=== PATIENT | male | born 1945 | race Caucasian/White ===

== ENCOUNTER → 2017-10-09 | Outpatient (CLI) | payer OTHER, MEDICARE | LOC: FIMAGING 10:59 | PROVIDERS: ATTEND Orthopaedic Surgery | DX: Z01.818 Encounter for other preprocedural examination (principal); M17.11 Unilateral primary osteoarthritis, right knee ==

== ENCOUNTER 2017-10-11 07:21 | Observation (INO) | payer OTHER, MEDICARE ==
--- NOTE | 2017-10-11 07:08 | PDHPUP ---
History & Physical Update H&P update statement: This history and physical update is based on an assessment of the patient which was completed after admission or registration (within 24 hours), but prior to the surgery/procedure. H&P update: H&P reviewed & patient examined, no change in patient's condition since H&P completed
[~2017-10-11 07:21] MED LIST: ROPIVACAINE 0.2% 80 MG, EPINEPHrine 0.2 MG, KETOROLAC TROMETHAMINE 30 MG in SYRINGE 0 ML IU ONE; TRANEXAMIC ACID 3,000 MG in NS (SYRINGE) 50 ML IRR ONE; TRANEXAMIC ACID 3,000 MG/50 ML BAG IRR ONE; VANCOMYCIN 1 GM VIAL ONE
[2017-10-11] MEDS ORDERED: FAMOTIDINE 20 MG TAB PO ONE (07:33)
[2017-10-11] MEDS ORDERED: ACETAMINOPHEN 325 MG TAB PO ONE (07:33)
[2017-10-11] MEDS ORDERED: ceFAZolin 2 GM/SWFI 2 GM/20 ML SYR IVP ONE (07:33)
[2017-10-11] MEDS ORDERED: DEXAMETHASONE 4 MG/ML VIAL IVP ONE (07:33)
[2017-10-11] MEDS ORDERED: LR 1,000 ML IV ONE (07:34)
[2017-10-11] MEDS ORDERED: PROPOFOL/EMULSION 500 MG/50 ML BOTTLE IV ONE (08:21)
[2017-10-11] MEDS ORDERED: BUPIVACAINE/EPI 0.5% 30 ML SDV ONE (08:24)
[2017-10-11] MEDS ORDERED: MIDAZOLAM 2 MG/2 ML VIAL IVP ONE (08:27)
--- NOTE | 2017-10-11 08:29 | PDANEPAE ---
ANE Past Medical History - Cardiovascular History Hx Hypertension: Yes Hx Arrhythmias: No Hx Chest Pain: No Hx Coronary Artery / Peripheral Vascular Disease: No Hx CHF / Valvular Disease: No Hx Palpitations: No Cardiovascular History Comment: Inverted T waves. - Pulmonary History Hx COPD: No Hx Asthma/Reactive Airway Disease: No Hx Recent Upper Respiratory Infection: No Hx Oxygen in Use at Home: No Hx Sleep Apnea: No Sleep Apnea Screening Result - Last Documented: Positive - Neurologic History Hx Cerebrovascular Accident: No Hx Seizures: No Hx Dementia: No - Endocrine History Hx Diabetes: No - Renal History Hx Renal Disorders: No - Liver History Hx Hepatic Disorders: No - Neurological & Psychiatric Hx Hx Neurological and Psychiatric Disorders: No Neurological / Psychiatric History Comment: Distant HX of depression/anxiety. 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 - Chronic Pain History Chronic Pain: No - Surgical History Prior Surgeries: L foot osteotomy. L hip resurface. L foot bunionectomy. Total of 5 surg on L foot. L5/S1 fusion. Bilateral ing hernia. R rotater cuff surg. L leg surg. Tonsils. ANE Review of Systems Review of Systems: - Exercise capacity METS (RN): 5 METS ANE Patient History - Allergies Allergies/Adverse Reactions: No Known Allergies Allergy (Verified 10/03/17 16:11) - Home Medications Home Medications: Pravastatin Sodium 40 mg PO DAILY 09/06/17 [Last Taken Unknown] Ibuprofen [Motrin (*)] 200 mg PO DAILY PRN 10/03/17 [Last Taken Unknown] Lisinopril [Zestril 5 mg (*)] 5 mg PO DAILY 10/03/17 [Last Taken Unknown] - NPO status NPO Since - Liquids (Date): 10/10/17 NPO Since - Liquids (Time): 21:00 NPO Since - Solids (Date): 10/10/17 NPO Since - Solids (Time): 21:00 - Anes Hx Anes Hx: no prior problems - Smoking Hx Smoking Status: Never smoked - Family Anes Hx Family Hx Anesthesia Complications: none ANE Labs/Vital Signs - Vital Signs Blood Pressure: 170/118 Heart Rate: 56 Respiratory Rate: 16 O2 Sat (%): 99 Height: 177.8 cm Weight: 61.689 kg ANE Physical Exam - Airway Neck exam: FROM Mallampati Score: Class 1 Mouth exam: normal dental/mouth exam - Pulmonary Pulmonary: no respiratory distress, no rales or rhonchi, clear to auscultation - Cardiovascular Cardiovascular: regular rate and rhythym, no murmur, rub, or gallop ANE Anesthesia Plan Anesthesia Plan: spinal Regional Anesthesia: adductor canal FNB
[2017-10-11] MEDS ORDERED: DEXAMETHASONE 4 MG/ML VIAL ONE (08:31)
[2017-10-11] MEDS ORDERED: NALOXONE HCL 0.4 MG/ML INJ IVP PRN (09:04)
[2017-10-11] MEDS ORDERED: fentaNYL 100 MCG/2 ML INJ ONE (09:11)
[2017-10-11] MEDS ORDERED: fentaNYL 100 MCG/2 ML INJ IVP PRN (09:17)
[2017-10-11] MEDS ORDERED: PROMETHAZINE HCL 25 MG/ML INJ IVP PRN ×2 (09:17→09:18)
[2017-10-11] MEDS ORDERED: LABETALOL HCL 5 MG/ML 20 ML MDV IVP PRN (09:17)
[2017-10-11] MEDS ORDERED: ONDANSETRON 4 MG/2 ML VIAL IVP PRN ×2 (09:17→09:18)
[2017-10-11] MEDS ORDERED: LR 500 ML IV PRN (09:17)
[2017-10-11] MEDS ORDERED: ENALAPRILAT DIHYDRATE 1.25 MG/ML VIAL IVP PRN (09:17)
[2017-10-11] MEDS ORDERED: POLYETHYLENE GLYCOL 3350 17 GM PKT PO PRN (09:18)
[2017-10-11] MEDS ORDERED: CYCLOBENZAPRINE 10 MG TAB PO PRN (09:18)
[2017-10-11] MEDS ORDERED: ONDANSETRON DISINTEGRATING 4 MG TAB PO PRN (09:18)
[2017-10-11] MEDS ORDERED: oxyCODONE IR 5 MG TAB PO PRN (09:18)
[2017-10-11] MEDS ORDERED: MAGNESIUM HYDROXIDE 30 ML UDCUP PO PRN (09:18)
[2017-10-11] MEDS ORDERED: diphenhydrAMINE 25 MG CAP PO PRN (09:18)
[2017-10-11] MEDS ORDERED: DIPHENOXYLATE/ATROPINE LOMOTIL 1 TAB PO PRN (09:18)
[2017-10-11] MEDS ORDERED: LACTULOSE 20 GM/30 ML UDCUP PO PRN (09:18)
[2017-10-11] MEDS ORDERED: TEMAZEPAM 15 MG CAP PO PRN (09:18)
[2017-10-11] MEDS ORDERED: PROMETHAZINE HCL 25 MG SUPPR PR PRN (09:18)
[2017-10-11] MEDS ORDERED: BISACODYL 10 MG SUPP PR PRN (09:18)
[2017-10-11] MEDS ORDERED: METOCLOPRAMIDE 10 MG/2 ML VIAL IVP PRN (09:18)
[2017-10-11] MEDS ORDERED: LR 1,000 ML IV SCH (09:30)
--- NOTE | 2017-10-11 10:06 | POSTOPPROG ---
Post Op Note Date of Operation: 10/11/17 Surgeon: [facility] Aide: delta castle Anesthesiologist: dr. ritter Anesthesia: Spinal, Other (Specify) (adductor canal block) Pre-op Diagnosis: right knee OA Post-op Diagnosis: same Indication: right knee pain due to OA that failed conservative measures Procedure: R PF partial knee arthroplasty Findings: severe PF knee OA Inf/Abcess present in the surg proc area at time of surgery?: No EBL: 50-100
--- NOTE | 2017-10-11 10:32 | POSTANESTH ---
Post Anesthetic Evaluation Cardiovascular Status: Normal, Stable Respiratory Status: Normal, Stable, Similar to Pre-op Cond. Level of Consciousness/Mental Status: Can Participate in Eval, Alert and Oriented Pain Control: Adequate, Prn Tx Ordered Nausea/Vomiting Control: Adequate, Prn Tx Ordered Complications Possibly Related to Anesthesia: None Noted (Adductor canal nerve block performed in PACU.)
[2017-10-11] MEDS: ACETAMINOPHEN 325 MG TAB PO SCH ×3 (12:05→22:50)
[2017-10-11 13:15] VITALS: RESP 16
[2017-10-11] MEDS: ceFAZolin 2 GM/SWFI 2 GM/20 ML SYR IVP SCH ×2 (13:52→21:42)
[2017-10-11] MEDS ORDERED: ceFAZolin 2 GM/DEXTROSE 100 ML IV SCH (14:00)
[2017-10-11] MEDS: hydrALAZINE 20 MG/ML VIAL IVP PRN ×2 (17:58→18:23)
[2017-10-11] MEDS: SENNOSIDES/DOCUSATE SODIUM TAB PO SCH (19:51)
--- NOTE | 2017-10-11 19:52 | GCON ---
[f rep st] CONSULTATION DATE OF CONSULTATION: 10/11/2017 HISTORY OF PRESENT ILLNESS: Mr. Hernández is a pleasant 72-year-old gentleman who is postoperative day 0 following a partial knee arthroplasty with Dr. Aidan Ramirez. I have been consulted to assist w ith management of his marked postoperative hypertension with systolic blood pressures as high as 130 and diastolic pressures as high as 200. Mr. Hernández carries a diagnosis of high blood pressure and takes lisinopril 5 daily. He says his normal blood pressures run 130. He acknowledges that there is some anxiety at this point in time. This morning when he arrived it wa s 170/118, but then at 10:00 a.m. postoperative it was 125/89. It seems to have settled since then. He has no headache. His pain is well-controlled. As I mentioned, he does have a bit of anxiety. H e is not short of breath. Not having chest pain. REVIEW OF SYSTEMS: Complete 10-point review of systems conducted, negative except as noted in the HP I. PAST MEDICAL HISTORY: Hypertension, osteoarthritis of the knee, hyperlipidemia. ALLERGIES: No known drug allergies. HOME MEDICATIONS: Ibuprofen, lisinopril, pravastatin. SOCIAL HISTORY: No tobacco. Occasional alcohol. He is not a heavy drinker. 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 He has lived in [place] since 1969. FAMILY HISTORY: Parents . PHYSICAL EXAMINATION: VITAL SIGNS: Temp 37.1, blood pressure 180/105, pulse 62, breathing 16 times a minute, 96% on room air. GENERAL: No acute distress. Slightly anxious. HEENT: Sclerae anicteri c. Oropharynx clear. Mucous membranes moist. NECK: Supple without lymphadenopathy or JVD. LUNGS: Clear to auscultation bilaterally. HEART: S1, S2. No murmurs. ABDOMEN: Soft, nontender, nondis tended. LOWER EXTREMITIES: No edema. Calves nontender. SKIN: Without rash. NEUROLOGIC: Exam is nonfocal. DIAGNOSTICS: EKG from May 2015 showed sinus bradycardia 53, with left axis deviation, likely LVH . There are biphasic Ts in V6 and in the inferior leads, or at least 3 and F. I discussed the case Dr. Aidan Ramirez. ASSESSMENT/PLAN: A 72-year-old gentleman who presents with postoperative hypertension. 1. Hypertension. I think this is likely secondary to the cocktail of medicines he got with his surg abhilash, as well as possible anxiety. He is not tachycardic. He is not having chest pain. His pain is reasonably well controlled. His operative report does not list a great deal of blood loss. I think what I would like to do is go ahead and start IM amlodipine now. I would use caution with p.r.n. hyd ralazine as this tends to cause up and down blood pressures. 2. Pain well controlled. Per Ortho. 3. Prophylaxis. He has a partial knee arthroplasty. I think I will defer to Orthopedic Surgery reg arding need for prophylaxis. 4. Hyperlipidemia. Continue statin. DISPOSITION: Inpatient. Thank you for the consultation. Hospital Medicine will follow. /[id number]/MODL
[2017-10-11] MEDS: ASPIRIN 81 MG CHEWABLE TAB PO SCH (19:54)
[2017-10-11] MEDS: FAMOTIDINE 20 MG TAB PO SCH (19:55)
--- NOTE | 2017-10-12 05:49 | GOP ---
[f rep st] OPERATIVE REPORT DATE OF OPERATION: 10/11/2017 SURGEON: Marli Ramirez MD FILTER PRESS SUPERVISOR: Claire Ramirez, GERRY. ANESTHESIA: Spinal. PREOPERATIVE DIAGNOSIS: Right knee osteoarthritis. POSTOPERATIVE DIAGNOSIS: Right knee osteoarthritis. PROCEDURE PERFORMED: Right patellofemoral arthroplasty with computer navigation , robotic assist. FINDINGS: INDICATIONS: Patient is a 72-year-old male with isolated patellofemoral disease. Risks and benefits were explained to the patient regarding operative intervention and informed consent was obtained. DESCRIPTION OF PROCEDURE: Patient was identified in the preoperative holding area. His right lower extremity was marked. He was then brought to the operating room. After adequate anesthesia, he was placed supine on the operating table. He then had the leg prepped and draped in the usual sterile fashion. Time-out was taken confirming patient, laterality, procedure, allergies, antibiotic status. We then proceeded to place 2 tracking pins on the anterolateral cortex of the femur. Made our incision, elevated the extremity. Tourniquet was up for a total of 20 minutes at 250 mmHg. We made our medial parapatellar arthrotomy, taking care not to cut into the medial meniscus. Identified the patella. This was cut freehand, sized to be a size 38, and drilled. We then mapped out the trochlea, and this matched up to the CT scan. Using a robotic controlled bur with computer navigation, burred out the sized footprint for a size 7 trochlear component. We then cemented the components in place. All check points were removed. Pins were removed. Incision was copiously irrigated and closed in layers. The patient was awakened and brought to PACU in good condition with a well- perfused limb. Plan is for the patient to be weightbearing as tolerated. /[id number]/MODL MTDD
[2017-10-12] MEDS: ACETAMINOPHEN 325 MG TAB PO SCH ×2 (06:10→11:48)
[2017-10-12] MEDS ORDERED: PRAVASTATIN SODIUM 40 MG TAB PO SCH (09:00)
[2017-10-12] MEDS ORDERED: LISINOPRIL 5 MG TAB PO SCH (09:00)
--- NOTE | 2017-10-12 09:12 | HOSPPROG ---
Hospitalist Progress Note Assessment/Plan: Patient is a 72 y/o male who is s/p partial knee arthroplasty. Hospitalist were asked to see in regards to hypertension. Today is my first encounter w the patient, chart reviewed. *HTN -Norvasc added to his home regimen (reviewed s/e of this medication) -would encourage patient to get a bp cuff for home use and monitor -could also increase Lisinopril dose/ he will further discuss w his PCP *HLD: statin #POD #1 for partial knee atrioplasty -has no pain during my evaluation, feeling great #plan: dc per orthopedics Subjective: German is feeling great, ready to be dc. Objective: Vital Signs Temp Pulse Resp BP Pulse Ox 36.8 C 63 16 159/108 H 93 10/12/17 07:58 10/12/17 07:58 10/12/17 07:58 10/12/17 07:58 10/12/17 07:58 Laboratory Results 10/12/17 05:05 10/11/17 10/12/17 10/13/17 05:59 05:59 05:59 Intake Total 2100 500 Output Total 830 Balance 1270 500 - Physical Exam Constitutional: no apparent distress, other (thin) Eyes: PERRL Ears, Nose, Mouth, Throat: hearing normal Cardiovascular: regular rate and rhythym Respiratory: no respiratory distress Gastrointestinal: normoactive bowel sounds Skin: warm Neurologic: AAOx3 Psychiatric: interacting appropriately ICD10 Worksheet Patient Problems: Problems Problem Status Onset Arthrodesis present Acute Lumbago due to displacement of intervertebral disc Acute Lumbar stenosis Acute
[2017-10-12] MEDS: ASPIRIN 81 MG CHEWABLE TAB PO SCH (09:25)
[2017-10-12] MEDS: FAMOTIDINE 20 MG TAB PO SCH (09:26)
[2017-10-12] MEDS: SENNOSIDES/DOCUSATE SODIUM TAB PO SCH (09:28)
[2017-10-12 11:18] VITALS: BP 156/80; PULSE 60; TEMP 97.5; O2SAT 97
--- NOTE | 2017-10-12 16:34 | SOAPPROG ---
SOAP Progress Note Assessment/Plan: Assessment: German is doing well POD 1 s/p R med MPL VTE ppx: recommend ASA 81 mg BID for 4 weeks HTN: appreciate hospitalist input, rec patient continue Norvasc 2.5mg daily D/c: d/c to home Plan: 10/12/17 16:31 Subjective: German is doing well, denies SOB, chest pain and N/V. Objective: Vital Signs Temp Pulse Resp BP Pulse Ox 36.4 C 60 16 156/80 H 97 10/12/17 11:17 10/12/17 11:17 10/12/17 11:17 10/12/17 11:17 10/12/17 11:17 Laboratory Results 10/12/17 05:05 10/11/17 10/12/17 10/13/17 05:59 05:59 05:59 Intake Total 2100 500 Output Total 830 Balance 1270 500 RLE: incision dressing is clean and dry, NVI, +pf/df ICD10 Worksheet Patient Problems: Problems Problem Status Onset Arthrodesis present Acute Lumbago due to displacement of intervertebral disc Acute Lumbar stenosis Acute Primary localized osteoarthritis of right knee Acute
--- NOTE | 2017-10-17 11:54 | GDS ---
[f rep st] DISCHARGE SUMMARY ADMISSION DIAGNOSIS: Right knee osteoarthritis. DISCHARGE DIAGNOSIS: Right patellofemoral partial knee arthroplasty. VTE PROPHYLAXIS: Recommend aspirin 81 mg twice daily for 4 weeks. BRIEF DESCRIPTION OF HOSPITAL STAY: Patient was admitted for an elective joint arthroplasty. The pa maurisio tolerated the procedure well and has passed physical therapy. The patient was given appropriat e antibiotic prophylaxis and venous thromboembolism prophylaxis. The patient's pain was well control led on oral pain medication, patient was holding down food, and had urinated. Decision was made to d ischarge the patient. The patient was given post-operative prescriptions pre-operatively. PLAN: Please follow up as scheduled with Dr. Ramirez's office. /[id number]/MODL
== END 2017-10-12 12:40 | disposition home or self-care (01) ==
LOC: F3N 07:21
PROVIDERS: ADMIT Orthopaedic Surgery; ATTEND Orthopaedic Surgery
DX: M17.11 Unilateral primary osteoarthritis, right knee (principal); I97.3 Postprocedural hypertension; E78.5 Hyperlipidemia, unspecified; Z85.828 Personal history of other malignant neoplasm of skin
CPT/HCPCS: 27446; 73560; 88311; 97161; 97165; C1713; C1776; G8978; G8979; G8980; G8987; G8988; G8989; J0171; J0360; J0690; J1100; J1885; J2250; J2704; J2795; J3010; J3370

== ENCOUNTER 2018-10-24 05:49 | Inpatient (IN) | payer OTHER, MEDICARE ==
[2018-10-24] MEDS ORDERED: ACETAMINOPHEN 500 MG TAB PO ONE (06:03)
[2018-10-24] MEDS ORDERED: ceFAZolin 2 GM/DEXTROSE 100 ML IV ONE (06:03)
[2018-10-24] MEDS ORDERED: GABAPENTIN 300 MG CAP PO ONE (06:03)
[2018-10-24] MEDS ORDERED: LR 1,000 ML IV ONE (06:05)
[2018-10-24] MEDS ORDERED: THROMBIN (BOVINE) 20,000 UNIT VIAL TP ONE (06:53)
[2018-10-24] MEDS ORDERED: CHLORHEXIDINE GLUC HIBICLENS 118 ML BTL TP ONE (06:53)
[2018-10-24] MEDS ORDERED: BACITRACIN 50,000 UNITS/10 ML SYR IRR ONE (06:54)
[2018-10-24] MEDS ORDERED: EPINEPHrine 1 MG/ML INJ ONE (06:54)
[2018-10-24] MEDS ORDERED: BUPIVACAINE 0.25% 30 ML SDV ONE (06:54)
[2018-10-24] MEDS ORDERED: MIDAZOLAM 2 MG/2 ML VIAL ONE (07:04)
[2018-10-24] MEDS ORDERED: MIDAZOLAM 2 MG/2 ML VIAL IVP ONE (07:05)
--- NOTE | 2018-10-24 07:05 | PDANEPAE ---
ANE Past Medical History - Cardiovascular History Hx Hypertension: Yes Hx Arrhythmias: No Hx Chest Pain: No Hx Coronary Artery / Peripheral Vascular Disease: No Hx CHF / Valvular Disease: No Hx Palpitations: No Cardiovascular History Comment: Inverted T waves. - Pulmonary History Hx COPD: No Hx Asthma/Reactive Airway Disease: No Hx Recent Upper Respiratory Infection: No Hx Oxygen in Use at Home: No Hx Sleep Apnea: No Sleep Apnea Screening Result - Last Documented: Positive - Neurologic History Hx Cerebrovascular Accident: No Hx Seizures: No Hx Dementia: No - Endocrine History Hx Diabetes: No - Renal History Hx Renal Disorders: No - Liver History Hx Hepatic Disorders: No - Neurological & Psychiatric Hx Hx Neurological and Psychiatric Disorders: No Neurological / Psychiatric History Comment: Distant HX of depression/anxiety. 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 L HIP RESURFACING. L foot osteotomy. L hip resurface. L foot bunionectomy. Total of 5 surg on L foot. L5/ S1 fusion. Bilateral ing hernia. R rotater cuff surg. L leg surg. Tonsils. ANE Review of Systems Review of Systems: - Exercise capacity METS (RN): 6 METS ANE Patient History - Allergies Allergies/Adverse Reactions: No Known Allergies Allergy (Verified 10/03/17 16:11) - Home Medications Home Medications: Pravastatin Sodium 40 mg PO HS 09/06/17 [Last Taken 10/23/18 21:30] Ferrous Sulfate [Ferrous Sulf 325 MG (*)] 325 mg PO DAILY 10/05/18 [Last Taken 10/17/18] Lisinopril [Zestril 20 mg (*)] 20 mg PO HS 10/05/18 [Last Taken 10/23/18 21:30] Multivitamins [Multivitamin (*)] 1 each PO DAILY 10/05/18 [Last Taken 10/17/18] amLODIPine BESYLATE [Norvasc 10 mg (*)] 10 mg PO HS 10/05/18 [Last Taken 21:30] - NPO status NPO Since - Liquids (Date): 10/23/18 NPO Since - Liquids (Time): 21:00 NPO Since - Solids (Date): 10/23/18 NPO Since - Solids (Time): 21:00 - Smoking Hx Smoking Status: Never smoked - Family Anes Hx Family Hx Anesthesia Complications: none ANE Labs/Vital Signs - Vital Signs Blood Pressure: 163/105 Heart Rate: 57 Respiratory Rate: 8 O2 Sat (%): 99 Height: 175.26 cm Weight: 61.235 kg ANE Physical Exam - Airway Neck exam: FROM Mallampati Score: Class 1 Mouth exam: normal dental/mouth exam - Pulmonary Pulmonary: no respiratory distress - Cardiovascular Cardiovascular: regular rate and rhythym - ASA Status ASA Status: II ANE Anesthesia Plan Anesthesia Plan: general endotracheal anesthesia
[2018-10-24] MEDS ORDERED: PROPOFOL/EMULSION 500 MG/50 ML BOTTLE IV ONE (07:14)
[2018-10-24] MEDS ORDERED: ROCURONIUM 50 MG/5 ML VIAL ONE (07:14)
[2018-10-24] MEDS ORDERED: LIDOCAINE 2% 5 ML SDV ONE (07:14)
[2018-10-24] MEDS ORDERED: REMIFENTANIL HCL 1 MG VIAL ONE ×2 (07:14)
[2018-10-24] MEDS ORDERED: DEXAMETHASONE 4 MG/ML VIAL ONE ×2 (07:14→11:39)
[2018-10-24] MEDS ORDERED: fentaNYL 250 MCG/5 ML INJ ONE (07:14)
[2018-10-24] MEDS ORDERED: ONDANSETRON 4 MG/2 ML VIAL ONE ×2 (07:14→11:39)
[2018-10-24] MEDS ORDERED: ONDANSETRON 4 MG/2 ML VIAL IVP PRN (08:09)
[2018-10-24] MEDS ORDERED: BISACODYL 10 MG SUPP PR PRN (08:09)
[2018-10-24] MEDS ORDERED: HYDROmorphONE/DILAUDID 1 MG/ML INJ IVP PRN (08:09)
[2018-10-24] MEDS ORDERED: morphINE PCA 30 MG/30 ML PCA IV PRN (08:09)
[2018-10-24] MEDS ORDERED: oxyCODONE IR 5 MG TAB PO PRN ×2 (08:09→12:24)
[2018-10-24] MEDS ORDERED: HYDROCODONE/APAP 5/325 TAB PO PRN (08:09)
[2018-10-24] MEDS ORDERED: LACTULOSE 20 GM/30 ML UDCUP PO PRN (08:09)
[2018-10-24] MEDS ORDERED: diphenhydrAMINE 25 MG CAP PO PRN (08:09)
[2018-10-24] MEDS ORDERED: ONDANSETRON DISINTEGRATING 4 MG TAB PO PRN (08:09)
[2018-10-24] MEDS ORDERED: MAGNESIUM HYDROXIDE 30 ML UDCUP PO PRN (08:09)
[2018-10-24] MEDS ORDERED: METHOCARBAMOL 750 MG TAB PO PRN (08:09)
[2018-10-24] MEDS ORDERED: NALOXONE HCL 0.4 MG/ML INJ IVP PRN ×2 (08:09→12:24)
[2018-10-24] MEDS ORDERED: POLYETHYLENE GLYCOL 3350 17 GM PKT PO PRN (08:09)
[2018-10-24] MEDS ORDERED: NS 1,000 ML IV SCH (08:15)
[2018-10-24] MEDS ORDERED: fentaNYL 100 MCG/2 ML INJ IVP PRN (12:24)
[2018-10-24] MEDS ORDERED: LABETALOL HCL 5 MG/ML 20 ML MDV IVP PRN (12:24)
--- NOTE | 2018-10-24 12:24 | POSTANESTH ---
Post Anesthetic Evaluation Cardiovascular Status: Normal, Stable Respiratory Status: Normal, Stable Level of Consciousness/Mental Status: Can Participate in Eval Pain Control: Adequate, Prn Tx Ordered Nausea/Vomiting Control: Adequate, Prn Tx Ordered Complications Possibly Related to Anesthesia: None Noted
--- NOTE | 2018-10-24 12:30 | SOAPPROG ---
SOAP Progress Note Assessment/Plan: Post Op Visit: S: Awake and alert. NAD. Pt with expected lower back pain. Legs feel better O: AFVSS/PERRLA/EOMI No droop CN 2-12 grossly intact +lt touch 5/5 BUE/BLE = CDI ADAM in place A/P: 73 yo male that is s/p removal of hardware at L4/5 with new TLIF L3/4 with tie in fusion L3-L5 -orders in place -call with any questions or concerns -brace when out of bed -no bending or twisting -pt seen by Dr Duncan -PT/OT ordered Objective: Vital Signs Temp Pulse Resp BP Pulse Ox 36.6 C 57 L 8 L 163/105 H 99 10/24/18 07:07 10/24/18 07:07 10/24/18 07:07 10/24/18 07:07 10/24/18 07:07 ICD10 Worksheet Patient Problems: Problems Problem Status Onset Arthrodesis present Acute Lumbago due to displacement of intervertebral disc Acute Lumbar stenosis Acute Primary localized osteoarthritis of right knee Acute - ICD10 Problem Qualifiers (1) Arthrodesis present
--- NOTE | 2018-10-24 12:32 | POSTOPPROG ---
Post Op Note Date of Operation: 10/24/18 Surgeon: Eyad Duncan Vending Machine Technician: ANNITA Beasley Anesthesiologist: MD Eva Anesthesia: GET(General Endotracheal), Local (Specify) Pre-op Diagnosis: lumbar stenosis L3/4 Post-op Diagnosis: lumbar stenosis L3/4 Indication: BLE pain/weakness Procedure: TLIF L3/4 with tie fusion to L5. PSF L3-L5 Findings: see op report Inf/Abcess present in the surg proc area at time of surgery?: No Depth: Deep Incisional (Fascial) EBL: 100-500 Total fluids administered: see anesthesia record Complications: none Drains: Jeremie Weaver
[2018-10-24] MEDS: SENNOSIDES/DOCUSATE SODIUM TAB PO SCH ×2 (14:16→19:54)
[2018-10-24] MEDS: FERROUS SULFATE 325 MG TAB PO SCH (14:16)
[2018-10-24] MEDS: FAMOTIDINE 20 MG TAB PO SCH ×2 (14:16→19:54)
--- NOTE | 2018-10-24 14:16 | GOP ---
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 Bilateral leg weakness. Prior fusion L4-5, L5-S1. Lumbar degenerative disk disease, L3-4. 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 Bilateral leg weakness. Prior fusion L4-5, L5-S1. Lumbar degenerative disk disease, L3-4. PROCEDURE PERFORMED: Removal of posterior nonsegmental hardware at L4-5 (88039). Placement of new p osterior segmental hardware at L3, L4, L5 (91287). Posterolateral and intervertebral arthrodesis L3- 4 (12988). Placement of biomechanical intervertebral device L3-4 (50073). Same incision bone graft harvest, microscope, spinal stereotaxis. FINDINGS: ESTIMATED BLOOD LOSS: 250 cc. INDICATIONS: The patient is an older a gentleman with a prior history of an L5-S1 fusion many, many years ago, who subsequently in 2014 underwent adjacent segment surgery at the L4-5 level due to sympt oms radiating into both legs, severe stenosis and that surgery went well without complication. He re covered from it, and he recently developed increasing leg weakness with some axial low back pain, but no significant radiating leg pain. An MRI demonstrated severe adjacent segment disease at L3-4, siobhan ateral foraminal stenosis and stenosis at the L3-4 level, and breakdown of the level above his prior fusion. I suggested a single-level decompression and fusion above his prior fusion as well as remova l of the hardware at L4-5. The risks of nerve injury, spinal fluid leak, continued weakness were dis cussed. He knew there was a chance that he may require additional surgery at the L2-3 level in the f uture. He knew there was risk of pseudoarthrosis and revision surgery. He also knew there was a archie nce we would do this and he would not see any benefit in his leg strength returning. He did want to try and consented to the procedure despite these risks. DESCRIPTION OF PROCEDURE: Patient was taken to the operating room, placed in the supine position. G eneral anesthesia was begun. He was flipped prone onto the Jeremie table. Care was taken to pad all points of contact. His back was sterilely prepped and draped in usual fashion. We made a midline i ncision from the spinous process of L2 down to the spinous process of about S1. It was a long incisi on. The patient's prior surgeries at L5-S1 had exposed the dura, and it was the one appreciated on a xial imaging. The level of the dura was consistent with the level of the L4 spinous process, and so we were extremely cognizant of the possibility of getting a spinal fluid leak on this case. We made a long incision to mitigate this risk. The incision was in the midline, down through the fascia. We then dissected down on the L2 spinous process and then exposed the L3 spinous process and then worke d our way laterally to the L4-5 posterolateral screws, which were totally exposed. We avoided midlin e dissection below the L4 spinous process. We removed the prior hardware. There was solid bony unio n posterolaterally. Gelfoam bullets were placed in the holes that remained. We then denuded the L3- 4 facet joint directly above the L4 pedicle screws and attached a Stealth reference frame and, using the frame and still stereotaxis, placed pedicle screws bilaterally at L3, and then we replaced the pe dicle screws at L4 and L5. We did use the same diameter screws and got great bony purchase, but we d id increase the screw size to the 5.5 mm tulip. This allowed us to use a titanium 5.5 mm tony, which indeed we did. We chose a 55 mm tony on the left and increased the lordosis on the tony, got nice redu ction of the tony down into the tulips, and we distracted between L3 and L4, reducing the retrolisthes is of L3 on L4. We did likewise on the right-hand side, but unfortunately the 55 mm tony did not fit, and we went to a 60 mm tony. We distracted between L3 and 4 and over distracted slightly for decompr ession. After we had decompressed the L3-4 level, we then released it and allowed it to fit into a m ore normal physiologic position. We removed all the soft tissue from the bone at L3-L4 and harvested the inferior L3 spinous process for autologous grafting purposes. We preserved the complete rostral L3 lamina. We did a bilateral L3-4 laminectomy, removing the rostral lip of the L4 lamina and the b ilateral lamina inferiorly of L3 with bilateral recess decompressions. We did a complete left facete ctomy. We did take off the rostral lip of L4, and there was really significant bulging of the dura t hrough our laminotomy defect. The bone edges were carefully shaped to try to prevent bony or delayed bony puncture of the dura. We placed a small piece of Gelfoam under this bony edge to try to preven t this as well. We swept the right-sided L4 root medially and looked under the root. There was no e vidence of free disk fragment herniation, but there was a bulge of the L3-4 disk on the right-hand si de, but there was great decompression of the thecal sac and the L4 nerve itself. We turned our atten tion then to the left-hand side, where we swept the L4 nerve root medially and, via left-sided approa ch, removed the disk and cartilaginous endplates at L3-4. We roughened the subchondral bone to creat e arthrodesis. The laminectomy and all of this work was done under the operating microscope for visu alization purposes. After removing the disk completely, we took the Elevate trial and inserted it at L3-4 and chose a 7 x 28 mm device. This was removed. We then followed this with bone morphogenic p rotein sponge as well as bony autograft in the disk space, followed by 7 x 28 mm device. It was inse rted from the left side at L3-4. We got a great fit. We then relaxed our distraction at L3 and then expanded the intervertebral device into lordosis and then final tightened the cap screws according t o company specification. We decorticated all the remaining bone posterolaterally bilaterally to crea te arthrodesis and placed BMP posterolaterally bilaterally for arthrodesis. A total of 2 mg of BMP w as used on the case. We had irrigated throughout the surgery with large amounts of antibiotic saline . We then closed the incision in multiple layers using Vicryl sutures, and a running PDS was placed in the skin itself. The patient was reversed from anesthesia, extubated, and transferred to recovery room in stable condition. There were no complications. COMPLICATIONS: None. HARDWARE REMOVED: Solera 4.75 mm system, L4-5. HARDWARE PLACED: Solera 5.5 mm system, extra-small BMP, and a 7 x 28 mm Elevate device at L3-4. We used six 6.5 x 45 mm screws. /[id number]/MODL
[2018-10-24] MEDS: ceFAZolin 2 GM/DEXTROSE 100 ML IV SCH ×2 (15:16→23:23)
[2018-10-24] MEDS: ACETAMINOPHEN 500 MG TAB PO SCH ×2 (15:16→22:06)
[2018-10-24] MEDS: GABAPENTIN 300 MG CAP PO SCH ×2 (15:16→22:07)
--- NOTE | 2018-10-24 17:50 | PDMN ---
Medical Necessity Medical necessity: [facility] IP only surgery; cpt 12858 TLIF (TLIF L3/4, PSF L3/5)
[2018-10-24] MEDS ORDERED: LISINOPRIL 20 MG TAB PO SCH (21:00)
[2018-10-24] MEDS ORDERED: PRAVASTATIN SODIUM 40 MG TAB PO SCH (21:00)
[2018-10-25] MEDS: GABAPENTIN 300 MG CAP PO SCH ×2 (05:25→13:20)
[2018-10-25 05:48] LABS: PLATELET COUNT 134 10^3/uL (150-400)
[2018-10-25] MEDS: ACETAMINOPHEN 500 MG TAB PO SCH ×3 (06:12→13:23)
--- NOTE | 2018-10-25 07:09 | NEUSURGPN ---
Date of Surgery: 10/24/18 Post Op Day: 1 Assessment/Plan: Assessment: 73 yo male that is s/p removal of hardware at L4/5 with new TLIF L3/ 4 with tie in fusion L3-L5 POD #1 Plan: -s/p L spine fusion: doing well this am with improvement of leg pain/pt with expected lower back pain -post op xrays pending -orders in place -call with any questions or concerns -brace when out of bed -ADAM in place will remove later today -H/H noted -no bending or twisting -pt seen by Dr Duncan -PT/OT ordered -plan to try and dc today -pt understands and agrees Subjective: Awake and alert. Pt with some expected lower back pain. No mirza/neck/chest/abd or gu complaints. No f/c/n/v/d Objective: AFVSS/PERRLA/EOMI No droop CN 2-12 grossly intact +lt touch 5/5 BUE/BLE = CDI ADAM in place Neuro Check Frequency: per routine Urinary Catheter in Place: Yes Urinary Catheter Indication: Other (Use Comment) (to be removed shortly) Catheter Insertion Date: 10/24/18 - Physician Discussed Patient with : Dakota Patient Seen by : [facility] Physical Exam - Vitals, I&O, Labs I and O 10/24/18 10/25/18 10/26/18 05:59 05:59 05:59 Intake Total 3875 Output Total 1620 Balance 2255 Weight 61.235 kg Intake: Oral (ml) 1150 IV Intake (ml) 2500 IV Infused (ml) 225 Ns 1,000 ml @ 75 mls/hr 125 IV CONT LADONNA Rx#: [id number] ceFAZolin 2 GM/DEXTROSE 100 100 ml @ 200 mls/hr IV Q8H LADONNA Rx#:[id number] Output: Urine (ml) 850 Catheter 850 Estimated Blood Loss (ml) 250 ADAM Drain Output (ml) 520 Back Jeremie Weaver 520 Other: Intake Quantity Yes Sufficient Vital Signs Temp Pulse Resp BP Pulse Ox 36.6 C 53 L 14 113/70 96 10/25/18 04:00 10/25/18 04:00 10/25/18 04:00 10/25/18 04:00 10/25/18 04:00 Laboratory Results 10/25/18 04:10/25/18 04:06 ICD10 Worksheet Patient Problems: Problems Problem Status Onset Arthrodesis present Acute Lumbago due to displacement of intervertebral disc Acute Lumbar stenosis Acute Primary localized osteoarthritis of right knee Acute - ICD10 Problem Qualifiers (1) Arthrodesis present
[2018-10-25] MEDS: FAMOTIDINE 20 MG TAB PO SCH (07:53)
[2018-10-25] MEDS: SENNOSIDES/DOCUSATE SODIUM TAB PO SCH (07:53)
[2018-10-25] MEDS: FERROUS SULFATE 325 MG TAB PO SCH (07:53)
[2018-10-25 11:57] VITALS: BP 130/80
--- NOTE | 2018-10-25 14:38 | ASMTCMCOM ---
CM Note CM Note Notes: Pt had planned spinal surgery, resides with spouse. PT rec outpatient. Pt was pre-arranged with [facility] and declines HC. Anticipate pt will d/c when medically stable. No CM d/c needs identified. CM available for changes/needs. D/c plan of care: Independent Date Signed: 10/25/2018 02:38 PM Electronically Signed By:TRISH Medina
[2018-10-27] MEDS ORDERED: ENOXAPARIN 40 MG/0.4 ML SYR SC SCH (09:00)
== END 2018-10-25 16:40 | disposition home or self-care (01) | DRG 455 ==
LOC: F3N 05:49
PROVIDERS: ADMIT Neurological Surgery; ATTEND Neurological Surgery
DX: M48.061 Spinal stenosis, lumbar region without neurogenic claudication (principal); M51.36 Other intervertebral disc degeneration, lumbar region; I10 Essential (primary) hypertension; G47.30 Sleep apnea, unspecified; Z98.1 Arthrodesis status; Z85.820 Personal history of malignant melanoma of skin
CPT/HCPCS: 97161-GP; 97165-GO; C1713; J0171; J0690; J1100; J2250; J2405; J2704; J3010

== ENCOUNTER → 2018-12-26 | Outpatient (CLI) | payer OTHER, MEDICARE | LOC: FIMAGING 14:26 | PROVIDERS: ATTEND Physician Assistant | DX: M43.17 Spondylolisthesis, lumbosacral region (principal); Z98.1 Arthrodesis status ==